=== PATIENT | male | born 1935 | race Caucasian/White ===

== ENCOUNTER 2018-07-29 21:20 | Emergency (ER) | payer MEDICARE, OTHER ==
[~2018-07-29] VITALS: Ht 172.7 cm; Wt 72.7 kg
[2018-07-29 21:34] VITALS: Ht 172.7 cm; Wt 72.7 kg
[2018-07-29] MEDS ORDERED: CEPH-443 PO (22:09)
--- NOTE | 2018-07-29 22:19 | ERD ---
ER Documentation Chief Complaint Chief Complaint [id number],from home,groin pain when urinating,dribbling HPI Very pleasant 83-year-old gentleman who presents to the emergency with family members who are interpreting. The patient is a long-standing history of BPH currently taking Flomax. Patient over the last 12 to 24 hours has had urinary retention. He describes fullness and suprapubic discomfort with only dribbling with urination. He denies any fevers or chills. No dysuria urgency or frequency. Symptoms are moderate currently. ROS All systems reviewed and are negative except as per history of present illness. Medications Home Meds Active Scripts Cephalexin* (Keflex*) 500 Mg Capsule, 500 MG PO BID for 7 Days, CAP Prov:SARAH VEGA MD 07/29/18 Allergies Allergies: Coded Allergies: No Known Allergy (Unverified , 07/29/18) PMhx/Soc History of Surgery: Yes (R inguinal hernia repair) Anesthesia Reaction: No Hx Neurological Disorder: No Hx Respiratory Disorders: No Hx Cardiac Disorders: Yes (HTN) Hx Psychiatric Problems: No Hx Miscellaneous Medical Probl: Yes (BPH) Hx Alcohol Use: Yes (occasionally) Hx Substance Use: No Hx Tobacco Use: Yes (3-4 cigarettes daily) Smoking Status: Current every day smoker FmHx Family History: No diabetes Physical Exam Vitals Vital Signs Date Temp Pulse Resp B/P (MAP) Pulse Ox O2 O2 Flow FiO2 Time Delivery Rate 07/29/18 98.4 89 19 180/72 97 Room Air 21:46 (108) 07/29/18 98.4 86 19 197/93 97 21:34 (127) Physical Exam General: Well developed, well nourished, no acute distress Head: Normocephalic, atraumatic. Eyes: Pupils equally reactive, EOM intact ENT: Moist mucous membranes Neck: Supple, no lymphadenopathy Respiratory: Lungs clear bilaterally, no distress Cardiovascular: RRR, no murmurs, rubs, or gallops Abdominal: Soft, fullness to the suprapubic region consistent with a distended bladder : Deferred MSK: No edema, no unilateral swelling, 5/5 strength Neurologic: Alert and oriented, moving all extremities, normal speech, no focal weakness, no cerebellar signs Skin: No rash Psych: Normal mood Results 24 hrs Current Medications Medications Dose Sig/Naomy Start Time Status Last (Trade) Ordered Route PRN Stop Time Admin Dose Reason Admin Lidocaine 20 ml ONCE ONCE 07/29/18 (Lidocaine MM 22:30 07/29/18 2% Urojet) 22:31 Procedures/MDM LAB INTERPRETATION: I reviewed the laboratory testing and it shows urinalysis that is pending MEDICAL DECISION MAKING: Patient presents with acute urinary retention likely secondary to BPH. The patient has an otherwise benign abdominal exam without concern for acute intra-abdominal process such as mass. The patient is a clear trigger including BPH. Patient will benefit from Pat catheter insertion for bladder decompression and a leg bag for 2 days with outpatient urology follow-up. Patient is currently taking Flomax. Empiric antibiotics reasonable. ER COURSE: * Pat catheter inserted with improved symptomatology. * Urinalysis and culture are pending and can be followed on an outpatient basis. CONSULTATION: [None] DISPOSITION PLAN: The patient does not have an identifiable emergent medical condition that warrants inpatient hospitalization at this time. The patient is deemed safe for discharge with outpatient follow-up. We discussed follow up with the patient's primary care doctor within 24 to 48 hours as needed. We also discussed return to the emergency room for worsening symptoms or worsening condition. Outpatient referral: Urology Discharge Medications: Keflex Pat catheter removal in 2 days Departure Diagnosis: Primary Impression: Acute urinary retention Condition: Stable Patient Instructions: Urinary Retention, Male Referrals: JASWINDER LANDRUM MD [facility] YOU HAVE RECEIVED A MEDICAL SCREENING EXAM AND THE RESULTS INDICATE THAT YOU DO NOT HAVE A CONDITION THAT REQUIRES URGENT TREATMENT IN THE EMERGENCY DEPARTMENT. FURTHER EVALUATION AND TREATMENT OF YOUR CONDITION CAN WAIT UNTIL YOU ARE SEEN IN YOUR DOCTORS OFFICE WITHIN THE NEXT 1-2 DAYS. IT IS YOUR RESPONSIBILITY TO MAKE AN APPOINTMENT FOR FOLOW-UP CARE. IF YOU HAVE A PRIMARY DOCTOR --you should call your primary doctor and schedule an appointment IF YOU DO NOT HAVE A PRIMARY DOCTOR YOU CAN CALL OUR PHYSICIAN REFERRAL HOTLINE AT IF YOU CAN NOT AFFORD TO SEE A PHYSICIAN YOU CAN CHOSE FROM THE FOLLOWING [facility] CL[facility] [address] [facility] [address] [facility] [facility] [address] [facility] [address] [facility] [facility] [address] [facility]. [facility] [address] [facility]. [facility] YOU HAVE RECEIVED A MEDICAL SCREENING EXAM AND THE RESULTS INDICATE THAT YOU DO NOT HAVE A CONDITION THAT REQUIRES URGENT TREATMENT IN THE EMERGENCY DEPARTMENT. FURTHER EVALUATION AND TREATMENT OF YOUR CONDITION CAN WAIT UNTIL YOU ARE SEEN IN YOUR DOCTORS OFFICE WITHIN THE NEXT 1-2 DAYS. IT IS YOUR RESPONSIBILITY TO MAKE AN APPOINTMENT FOR FOLOW-UP CARE. IF YOU HAVE A PRIMARY DOCTOR --you should call your primary doctor and schedule and appointment IF YOU DO NOT HAVE A PRIMARY DOCTOR YOU CAN CALL OUR PHYSICIAN REFERRAL HOTLINE AT . IF YOU CAN NOT AFFORD TO SEE A PHYSICIAN YOU CAN CHOSE FROM THE FOLLOWING FOR[facility] INSTITUTIONS: [facility] [address] [place] [address] [facility] [address] [place], [place] [id number] [place] [address] [address] [place] [address] Additional Instructions: Call your primary care doctor TOMORROW for an appointment during the next 2-3 days.See the doctor sooner or return here if your condition worsens before your appointment time. Pat removal in 2 days either in ED or with urologist SARAH VEGA MD Jul 29, 2018 22:19
[2018-07-29] MEDS ORDERED: LIDOCAINE 2% 20 ML UROJET SYRINGE MM ONE (22:30)
[2018-07-29 23:08] VITALS: BP 180/72; PULSE 89; RESP 19
== END 2018-07-29 23:08 | disposition home or self-care (01) ==
LOC: EDBD 21:20 → E/R 21:20
DX: R33.9 Retention of urine, unspecified (principal); I10 Essential (primary) hypertension; F17.210 Nicotine dependence, cigarettes, uncomplicated; R40.2142 Coma scale, eyes open, spontaneous, at arrival to emergency department; R40.2362 Coma scale, best motor response, obeys commands, at arrival to emergency department; R40.2252 Coma scale, best verbal response, oriented, at arrival to emergency department
CPT/HCPCS: 36415; 81001; 87086

== ENCOUNTER 2018-08-03 10:48 | Emergency (ER) | payer MEDICARE, OTHER ==
[~2018-08-03] VITALS: Wt 77.9 kg
[~2018-08-03 10:48] MED LIST: CEPH-443 PO
[2018-08-03] MEDS ORDERED: TAMSULOSIN (SR) 0.4 MG CAP PO ONE (11:30)
[2018-08-03] MEDS ORDERED: CIPR500T4 PO (12:20)
[2018-08-03] MEDS ORDERED: ACET325T33 PO (12:20)
[2018-08-03] MEDS ORDERED: TAMS-14 PO (12:20)
--- NOTE | 2018-08-03 12:23 | ERD ---
ER Documentation Chief Complaint Chief Complaint HAS F/C , HERE FOR REMOVAL HPI 83-year-old male presenting with urine catheter check. Patient was in the ER the other day they placed a catheter in because he was unable to urinate patient is here because he can get into his urologist until Thursday. Patient wants to have his catheter removed. Patient denies nausea vomiting body chills fever, dysuria ROS All systems reviewed and are negative except as per history of present illness. Medications Home Meds Active Scripts Acetaminophen* (Tylenol*) 325 Mg Tablet, 1 TAB PO Q6 PRN for PAIN AND OR ELEVATED TEMP, #20 TAB Prov:TERRANCE ESPARZA PA-C 08/03/18 Tamsulosin Hcl* (Flomax*) 0.4 Mg Cap.er.24h, 0.4 MG PO BID, #30 CAP Prov:TERRANCE ESPARZA PA-C 08/03/18 Ciprofloxacin Hcl* (Ciprofloxacin Hcl*) 500 Mg Tablet, 500 MG PO BID for 7 Days, TAB Prov:TERRANCE ESPARZA PA-C 08/03/18 Cephalexin* (Keflex*) 500 Mg Capsule, 500 MG PO BID for 7 Days, CAP Prov:SARAH VEGA MD 07/29/18 Allergies Allergies: Coded Allergies: No Known Allergy (Unverified , 07/29/18) PMhx/Soc History of Surgery: Yes (R inguinal hernia repair) Anesthesia Reaction: No Hx Neurological Disorder: No Hx Respiratory Disorders: No Hx Cardiac Disorders: Yes (HTN) Hx Psychiatric Problems: No Hx Miscellaneous Medical Probl: Yes (BPH, Hyperlipidemia) Hx Alcohol Use: Yes (occasionally) Hx Substance Use: No Hx Tobacco Use: Yes (3-4 cigarettes daily) Smoking Status: Current every day smoker FmHx Family History: No diabetes, No coronary disease, No other Physical Exam Vitals Vital Signs Date Temp Pulse Resp B/P (MAP) Pulse Ox O2 O2 Flow FiO2 Time Delivery Rate 08/03/18 98.3 94 18 153/65 99 10:51 (94) Physical Exam Const: No acute distress Head: Atraumatic Eyes: Normal Conjunctiva ENT: Normal External Ears, Nose and Mouth. Neck: Full range of motion. No meningismus. Resp: Clear to auscultation bilaterally Cardio: Regular rate and rhythm, no murmurs Abd: Soft, non tender, non distended. Normal bowel sounds Skin: No petechiae or rashes Back: No midline or flank tenderness Ext: No cyanosis, or edema : Patient has catheter placed in no signs of infection, the tip of the patient's penis appears non-erythematous no inflammation no streaking no discharge no pain. Patient's catheter bag appears to have some blood in the urine. Results 24 hrs Laboratory Tests Test 08/03/18 12:14 Urine Color RED Urine Clarity CLOUDY Urine pH 6.0 Urine Specific [place] 1.022 Urine Ketones NEGATIVE mg/dL Urine Nitrite NEGATIVE mg/dL Urine Bilirubin NEGATIVE mg/dL Urine Urobilinogen NEGATIVE mg/dL Urine Leukocyte Esterase NEGATIVE Christine/ul Urine Microscopic RBC > 182 /HPF Urine Microscopic WBC 0 /HPF Urine Hemoglobin 3+ mg/dL Urine Glucose NEGATIVE mg/dL Urine Total Protein 3+ mg/dl Current Medications Medications Dose Sig/Naomy Start Time Status Last (Trade) Ordered Route PRN Stop Time Admin Dose Reason Admin Tamsulosin 0.4 mg ONCE ONCE 08/03/18 DC HCl PO 11:30 (Flomax) 08/03/18 11:30 Procedures/MDM ED course: Catheter removal Catheter placement The patient was stable throughout the ED course. The patient and/or family informed of laboratory and diagnostic imaging results throughout the ED course. Procedures: Catheter placement Medical decision making: Patient is a 83-year-old male presenting to the ER to have his catheter removed. Patient states he was here at the ER because he could not urinate a few days ago. They discharged him with a catheter and a prescription for Keflex. Patient denies any symptoms of dysuria pain fever chills or back pain. Patient just wants to see if he can urinate without the catheter. The catheter was removed and the patient was unable to urinate. The nurse placed a new catheter in which the patient tolerated well and was able to pass urine without difficulty. And a sample was sent out for a UA which was unremarkable. Patient's physical exam was unremarkable. Patient states that he has a appointment with his urologist for this Thursday. Patient is being sent home with an antibiotic for Cipro with strict instructions to take it unless he becomes symptomatic. Patient is a high risk patient with poor hygiene and unable to bath without assistance from his . Patient hygiene concerns me for increased risk of infection with the catheter in place. Patient was advise to only take the antibiotic if he becomes symptomatic. Patient was advised to keep his appointment for this Thursday with his urologist. Patient's Flomax was refilled and was given a prescription for acetaminophen for pain. At this time I have low suspicion for pyelonephritis, UTI, DAMARI, systemic infection,nephrolithiasis, appendicitis, epididymitis, urethritis, orchitis, balanitis, prostatitis, phimosis, priapism, penile contusion, incarcerated h ernia or strangulated hernia. Patient plans to keep his appointment and understands he should return to ER immediately if symptoms worsen. All questions were answered apart discharge Prescription for home: Cipro Acetaminophen Flomax Discharge: At this time, patient is stable for discharge and outpatient management. I have instructed the patient to follow-up with his\her primary care physician in 1 to 2 days. I have discussed with the patient the possibility of needing to see a specialist for further work-up and imaging studies if symptoms persist. I have instructed the patient to promptly return to the ER for any new or worsening symptoms including increased pain, fever, nausea, vomiting, weakness or LOC. The patient and\or family expressed understanding of and agreement with this plan. All questions were answered. Home care instructions were provided. Disclaimer: Inadvertent spelling and grammatical errors are likely due to EHR\dictation software use and do not reflect on the overall quality of patient care. Also, please note that the electronic time recorded on the note does not necessarily reflect the actual time of the patient encounter. Departure Diagnosis: Primary Impression: Urinary retention Additional Impressions: Hematuria Hematuria type: unspecified type Qualified Codes: R31.9 - Hematuria, unspecified Catheter (urine) change required Condition: Stable Patient Instructions: Hematuria, Urinary Retention, Male Referrals: JASWINDER LANDRUM MD, ANDY Y Additional Instructions: Take all medicines as directed. Follow-up with your urologist on Thursday otherwise it provided you with a resource for urologist. The experience back pain fever chills irritation to where the catheter is placed return immediately. TERRANCE ESPARZA PA-C Aug 03, 2018 12:23
== END 2018-08-03 13:10 | disposition left against medical advice (07) ==
LOC: FTE 10:48
DX: R33.9 Retention of urine, unspecified (principal); I10 Essential (primary) hypertension; F17.210 Nicotine dependence, cigarettes, uncomplicated; R31.9 Hematuria, unspecified
CPT/HCPCS: 81001; 87086